=== PATIENT | male | born 1990 | race Caucasian/White ===

== ENCOUNTER 2019-10-12 10:13 | Emergency (ER) | payer OTHER ==
[~2019-10-12] VITALS: Ht 167.6 cm; Wt 77.1 kg
[~2019-10-12 10:13] MED LIST: ONDANSETRON ODT4 MG PO
[2019-10-12 10:17] VITALS: BP 126/79
[2019-10-12] MEDS ORDERED: NAPROSYN500 MG PO (11:13)
== END 2019-10-12 11:17 | disposition home or self-care (01) ==
LOC: ER 10:13
DX: S93.602A Unspecified sprain of left foot, initial encounter (principal); Z96.22 Myringotomy tube(s) status; Z98.890 Other specified postprocedural states; Z88.2 Allergy status to sulfonamides; X58.XXXA Exposure to other specified factors, initial encounter; Y93.89 Activity, other specified; Y92.89 Other specified places as the place of occurrence of the external cause; Y99.8 Other external cause status

== ENCOUNTER 2020-02-22 18:00 | Emergency (ER) | payer OTHER ==
[~2020-02-22] VITALS: Ht 167.6 cm; Wt 72.6 kg
[~2020-02-22 18:00] MED LIST changes: +NAPROSYN500 MG PO
[2020-02-22] MEDS ORDERED: NORCO 5-325 TA1 EAC2 PO (20:37)
[2020-02-22 21:07] VITALS: BP 127/78
== END 2020-02-22 21:39 | disposition home or self-care (01) ==
LOC: ER 18:00
DX: S62.112A Displaced fracture of triquetrum [cuneiform] bone, left wrist, initial encounter for closed fracture (principal); F12.90 Cannabis use, unspecified, uncomplicated; Z88.2 Allergy status to sulfonamides; Z98.890 Other specified postprocedural states; V29.88XA Motorcycle rider (driver) (passenger) injured in other specified transport accidents, initial encounter; Y93.55 Activity, bike riding; Y92.413 State road as the place of occurrence of the external cause; Y99.9 Unspecified external cause status